=== PATIENT | male | born 1955 | race Caucasian/White ===

== ENCOUNTER 2021-03-25 17:11 | Outpatient (REF) | payer OTHER, SELFPAY ==
[2021-03-25 18:37] LABS: Influenza A PCR NEGATIVE (Negative); Influenza B PCR NEGATIVE (Negative); Resp Syncy Virus RNA Qual PCR NEGATIVE (Negative); SARS COV2 PCR INHOUSE NEGATIVE (Negative)
== END 2021-03-25 17:12 | disposition home or self-care (01) ==
LOC: HO.LNP 17:11
PROVIDERS: Visit Provider Physician Assistant Medical
DX: J06.9 Acute upper respiratory infection, unspecified (principal); J02.9 Acute pharyngitis, unspecified; Z20.822 Contact with and (suspected) exposure to COVID-19
CPT/HCPCS: 0241U

== ENCOUNTER 2022-03-26 08:29 | Emergency (ER) | payer OTHER, SELFPAY ==
[2022-03-26 08:41] VITALS: BP 122/73; PULSE 81; RESP 20; TEMP 36.1; O2SAT 97
[2022-03-26 08:58] VITALS: BP 122/73; PULSE 81; RESP 20; TEMP 36.6; O2SAT 97; BMI 30.4
[2022-03-26 09:33] LABS: Influenza A PCR NEGATIVE (Negative); Influenza B PCR NEGATIVE (Negative); Resp Syncy Virus RNA Qual PCR NEGATIVE (Negative); SARS COV2 PCR INHOUSE POSITIVE (Negative)
--- NOTE | 2022-03-26 09:51 | ED_ITS ---
HPI - URI/Sore Throat General Chief Complaint: Upper Respiratory Symptoms Stated Complaint: sore throat, chest congestion Time Seen by Provider: 03/26/22 08:44 Source: patient Mode of arrival: ambulatory Limitations: no limitations History of Present Illness HPI Narrative: 66-year-old male who presents emergency department for evaluation upper respiratory infection x2 days. Patient states that 3 days prior he was working in a mold the basement cleaning it out. He states that 2 days prior he developed an upper respiratory infection with symptoms to include chills, rhinorrhea, sore throat, nonproductive cough. He states that he is having chest pain with coughing. He points to the center of his chest and describes his pain is a dull pain which is 5/10 at its worst. Patient states that he is a former smoker and quit smoking 15 years prior but smoked greater than 30 years. States that because of this he does feel short of breath on chronically and does have dyspnea on exertion chronically. Patient is complaining of fatigue and body aches. He denied diarrhea. Patient states that he has received 2 Moderna vaccinations and a booster vaccination. Patient states that his grandson was ill with influenza A. MD elicited complaint: cough and nasal congestion Onset (ago): day(s) (2) Consistency: intermittent Severity: moderate Description of mucous: other (Non per) Able to tolerate fluids by mouth: Yes Exacerbating factors: nothing Relieving factors: nothing Context: sick contacts (Grandson has the flu) Related Data Home Medications Medication Instructions Recorded Confirmed chlorthalidone 25 mg tablet 25 mg PO DAILY PRN swelling 03/25/21 finasteride 5 mg tablet 5 mg PO DAILY 03/25/21 lisinopril 10 mg tablet 10 mg PO DAILY 03/25/21 metformin 1,000 mg tablet 1,000 mg PO BID 03/25/21 pravastatin 80 mg tablet 80 mg PO DAILY 03/25/21 Previous Rx's Medication Instructions Recorded azithromycin 250 mg tablet See Rx Instructions PO .COMPLEX #6 03/25/21 tabs prednisone 20 mg tablet 20 mg PO DAILY 3 days #3 tabs 03/25/21 nirmatrelvir 300 mg (150 mg See Rx Instructions PO .COMPLEX 5 03/26/22 x2)-ritonavir 100 mg tablet,dose days #30 ea pack(EUA) (Paxlovid) Allergies Allergy/AdvReac Type Severity Reaction Status Date / Time No Known Allergies Allergy Verified 03/25/21 15:32 Review of Systems Review of Systems: Yes all other systems are reviewed and are negative [facility] Past Medical History [facility] Narrative: Past medical history: Diabetes mellitus, hypertension, pneumonia, bronchitis. Social history: The patient is a former smoker and quit smoking 15 years prior, he states he smoked for greater than 30 years. He rarely drinks alcohol. He denies drug use. Social History Social History Patient Tobacco Use Status: Former Tobacco user Advance Directives: No Advance Directives Information Provided: No Physical Exam Vital Signs: Vital Signs: Last Vital Signs Temp 97.9 F 03/26/22 08:58 Pulse 81 03/26/22 08:58 Resp 20 03/26/22 08:58 BP 122/73 03/26/22 08:58 Pulse Ox 97 03/26/22 08:58 O2 Del Method 03/26/22 08:58 BMI result Body Mass Index 30.4 Const: General: cooperative and no acute distress Orientation/consciousness: oriented to person and oriented to place Limitations: no limitations HEENT: Head: Yes normal to inspection, Yes normocephalic and Yes atraumatic Ears: external ears normal General nose exam: Normal external nose present Face and sinus: Yes normal facial exam Mouth: Normal oral and palatal mucosa present Throat: Yes posterior oropharynx normal Eyes: General: appearance normal, both eyes and all related structures P upils: Equal, round and reactive pupils present Neck: Neck: Yes normal visual inspection, Yes no lymphadenopathy, Yes trachea midline and Yes supple Chest: Chest palpation & inspection: normal inspection of the chest and normal palpation of entire chest wall Resp: Effort & Inspection: normal respiratory effort and able to speak in complete sentences Auscultation: clear to auscultation bilaterally Cardio: Rate: regular rate Rhythm: regular rhythm Heart sounds: S1 normal heart sound present, S2 normal heart sound present and no murmurs GI: Inspection: Yes normal to inspection Palpation (GI): Soft to palpation, nontender and no guarding Auscultation: normal bowel sounds : General: Yes no CVA tenderness Back/Spine/Pelvis: Back: no CVA tenderness Skin: General skin exam: no rashes or lesions noted Neuro: General: oriented to person and oriented to place Cranial nerves: Yes CN's II-XII intact bilaterally and Yes Equal, round and reactive pupils present Cognition (Neuro): normal cognition Motor exam (neuro): 5/5 motor strength present throughout Extrem: General: Yes normal to inspection Psych: Appearance: grossly normal Speech and movement: Normal speech and movement present Affect: normal affect Attitude: cooperative Thought process: Normal thought process present Thought content: Normal thought content present Course Course Course Narrative: 66-year-old male who presents emergency department for evaluation of upper respiratory illness x2 days with symptoms including chills, rhinorrhea, sore throat, cough, chest pain. Vital signs were normal with a room air O2 saturation of 97%. Patient's physical examination was unremarkable. Patient's COVID-19 test was positive. The patient has received 2 COVID vaccinations and a booster shot. Patient is at increased risk for significant illness secondary to COVID (age, diabetes, hypertension, former smoker) therefore he will be treated with PACs elevated. He is advised to stop the pravastatin. He is given printed and verbal instructions discharged home. MDM - URI/Sore Throat Lab Data Labs: Lab Results 03/26/22 Range/Units 08:43 Influenza Type A (PCR) NEGATIVE (Negative) Influenza Type B (PCR) NEGATIVE (Negative) RSV RNA Qual (PCR) NEGATIVE (Negative) SARS-CoV-2 RNA (RT-PCR) POSITIVE A (Negative) Discharge Plan Discharge Clinical Impression: COVID-19 virus infection Patient Disposition: Home, Self-Care Additional Instructions: Your COVID-19 test was positive Your influenza test was negative. Take Advil( ibuprofen) 200 mg pills, 3 pills every 6 hours as needed for pain or fever. Take Tylenol (acetaminophen) 500 mg pills, 2 pills every 4 to 6 hours as needed for pain or fever. Take Paxlovid as prescribed for 5 days. Stop taking your cholesterol medicine, pravastatin while taking Paxlovid Follow-up with your doctor in 2 days. Please return to the emergency department if your symptoms get worse or if you develop any symptoms that are concerning to you. Prescriptions: New Paxlovid (EUA) 300 mg (150 mg x 2)-100 mg tablets,dose pack See Rx Instructions .ROUTE .COMPLEX 5 Days Qty: 30 0RF Rx Instructions: take TWO 150 mg tablets of nirmatrelvir with ONE 100 mg tablet of ritonavir twice daily for 5 days No Action finasteride 5 mg tablet 5 mg PO DAILY lisinopril 10 mg tablet 10 mg PO DAILY pravastatin 80 mg tablet 80 mg PO DAILY chlorthalidone 25 mg tablet 25 mg PO DAILY PRN (Reason: swelling) metformin 1,000 mg tablet 1,000 mg PO BID azithromycin 250 mg tablet See Rx Instructions PO .COMPLEX Qty: 6 0RF Rx Instructions: take 500 mg today (day 1), then 250 mg for 4 days (days 2-5) PO prednisone 20 mg tablet 20 mg PO DAILY 3 Days Qty: 3 0RF
== END 2022-03-26 10:14 | disposition home or self-care (01) ==
PROVIDERS: Emergency Provider Emergency Medicine Emergency Medical Services; PCP Internal Medicine
DX: U07.1 COVID-19 (principal); E11.9 Type 2 diabetes mellitus without complications; I10 Essential (primary) hypertension; Z79.84 Long term (current) use of oral hypoglycemic drugs; Z79.02 Long term (current) use of antithrombotics/antiplatelets
CPT/HCPCS: 0241U; 99283

== ENCOUNTER 2022-03-30 05:32 | Emergency (ER) | payer OTHER, SELFPAY ==
--- NOTE | ~2022-03-30 | XR_ITS ---
EXAMINATION: XR CHEST CLINICAL INFORMATION: Cough. COMPARISON: None TECHNIQUE: Frontal view of the chest was obtained. FINDINGS: The lungs are hypoexpanded but clear of acute process. The heart size and pulmonary vascularity is normal. There is moderate spondylosis dorsal spine.. XR/XR chest 1V IMPRESSION: Unremarkable chest examination.
[2022-03-30 05:44] VITALS: BP 116/77; PULSE 103; RESP 20; TEMP 36.1; O2SAT 94; BMI 30.4
--- NOTE | 2022-03-30 07:18 | ED_ITS ---
HPI - URI/Sore Throat General Chief Complaint: Upper Respiratory Symptoms Stated Complaint: covid +; symptoms worsening Time Seen by Provider: 03/30/22 06:53 Source: patient Mode of arrival: ambulatory Limitations: no limitations History of Present Illness HPI Narrative: This is a 66 years old the male COVID positive seen on March 26 in this department and started on Paxil , return today because persistent cough body aches and malaise. Symptoms worse when he lies down. MD elicited complaint: cough, sore throat and nasal congestion Pertinent past history: other (COVID positive) Onset (ago): day(s) (4) Consistency: constant Severity: moderate Description of mucous: clear Able to tolerate fluids by mouth: Yes Exacerbating factors: nothing Relieving factors: nothing Associated symptoms: myalgias, nasal congestion and cough Related Data Home Medications Medication Instructions Recorded Confirmed chlorthalidone 25 mg tablet 25 mg PO DAILY PRN swelling 03/25/21 finasteride 5 mg tablet 5 mg PO DAILY 03/25/21 lisinopril 10 mg tablet 10 mg PO DAILY 03/25/21 metformin 1,000 mg tablet 1,000 mg PO BID 03/25/21 pravastatin 80 mg tablet 80 mg PO DAILY 03/25/21 Previous Rx's Medication Instructions Recorded azithromycin 250 mg tablet See Rx Instructions PO .COMPLEX #6 03/25/21 tabs prednisone 20 mg tablet 20 mg PO DAILY 3 days #3 tabs 03/25/21 nirmatrelvir 300 mg (150 mg See Rx Instructions PO .COMPLEX 5 03/26/22 x2)-ritonavir 100 mg tablet,dose days #30 ea pack(EUA) (Paxlovid) Allergies Allergy/AdvReac Type Severity Reaction Status Date / Time No Known Allergies Allergy Verified 03/30/22 05:48 Review of Systems Review of Systems: Yes all other systems are reviewed and are negative Constitutional: Constitutional: Reports no additional constitutional complaints Eyes: Eyes: Reports no additional eye complaints ENT: Reports system reviewed and no additional complaints, except as documented Cardiovascular: Cardiovascular: Reports no additional cardiovascular complaints Respiratory: Respiratory: Reports no additional respiratory complaints [facility] Social History Social History Patient Tobacco Use Status: Former Tobacco user Advance Directives: Yes Advance Directives Information Provided: Yes Advance Directives on File: No Physical Exam Vital Signs: Vital Signs: Last Vital Signs Temp 98.0 F 03/30/22 07:46 Pulse 86 03/30/22 07:46 Resp 20 03/30/22 07:46 BP 108/71 03/30/22 07:46 Pulse Ox 94 03/30/22 07:46 O2 Del Method 03/30/22 07:46 BMI result Body Mass Index 30.4 Const: General: cooperative Nutritional Appearance: average body habitus and well nourished Orientation/consciousness: patient oriented x3 Limitations: no limitations HEENT: Head: Yes normal to inspection Face and sinus: Yes normal facial exam Mouth: Normal oral and palatal mucosa present Neck: Neck: Yes normal visual inspection, Yes full ROM and Yes no lymphadenopathy Thyroid: Thyroid normal Chest: Chest palpation & inspection: normal inspection of the chest Resp: Effort & Inspection: normal respiratory effort and able to speak in complete sentences Auscultation: rhonchi Cardio: Jugular venous distension: no JVD Rate: regular rate Rhythm: re gular rhythm GI: Inspection: Yes normal to inspection Palpation (GI): Soft to palpation, not firm, nontender and no guarding Skin: Other: no rashes Neuro: General: patient oriented x3 Course Reevaluation(s) Reevaluation #1: feels better CXR negative will d/c already on Paxlovid Time: 08:29 Medications Administered Discontinued Medications Generic Name Dose Route Start Last Admin Trade Name Freq PRN Reason Stop Dose Admin Acetaminophen 975 mg 03/30/22 07:17 03/30/22 07:45 Acetaminophen 325 Mg Tablet PO 03/30/22 07:18 975 mg ONCE ONE Administration MDM - URI/Sore Throat Imaging Data Chest x-ray: Radiologist's impression: EXAMINATION: XR CHEST CLINICAL INFORMATION: Cough. COMPARISON: None TECHNIQUE: Frontal view of the chest was obtained. FINDINGS: The lungs are hypoexpanded but clear of acute process. The heart size and pulmonary vascularity is normal. There is moderate spondylosis dorsal spine.. XR/XR chest 1V IMPRESSION: Unremarkable chest examination. ? Dictated By: Adrian Blake MD Signed By: <Electronically signed by Adrian Blake MD in OV> 03/30/22 0809 Discharge Plan Discharge Clinical Impression: COVID-19 virus infection Patient Disposition: Home, Self-Care Instructions: COVID-19 (Coronavirus Disease 2019) (ED) Additional Instructions: Follow-up with your primary care physician take a tunnel and ibuprofen for pain return if you worse Prescriptions: No Action Paxlovid (EUA) 300 mg (150 mg x 2)-100 mg tablets,dose pack See Rx Instructions .ROUTE .COMPLEX 5 Days Qty: 30 0RF Rx Instructions: take TWO 150 mg tablets of nirmatrelvir with ONE 100 mg tablet of ritonavir twice daily for 5 days finasteride 5 mg tablet 5 mg PO DAILY lisinopril 10 mg tablet 10 mg PO DAILY pravastatin 80 mg tablet 80 mg PO DAILY chlorthalidone 25 mg tablet 25 mg PO DAILY PRN (Reason: swelling) metformin 1,000 mg tablet 1,000 mg PO BID azithromycin 250 mg tablet See Rx Instructions PO .COMPLEX Qty: 6 0RF Rx Instructions: take 500 mg today (day 1), then 250 mg for 4 days (days 2-5) PO prednisone 20 mg tablet 20 mg PO DAILY 3 Days Qty: 3 0RF Referrals: Suresh Lincoln MD [Primary Care Provider] - 2 days Interventions: ED Discharge Assessment Last Done: 03/30/22 09:12 Discharge Date/Time: 03/30/22 09:14
[2022-03-30] MEDS: Acetaminophen 325 MG TABLET 975 MG PO (07:45)
[2022-03-30 07:46] VITALS: BP 108/71; PULSE 86; RESP 20; TEMP 36.7; O2SAT 94
== END 2022-03-30 09:14 | disposition home or self-care (01) ==
PROVIDERS: Emergency Provider Emergency Medicine; PCP Internal Medicine
DX: U07.1 COVID-19 (principal); M79.10 Myalgia, unspecified site; R05.9 Cough, unspecified; Z79.899 Other long term (current) drug therapy
CPT/HCPCS: 71045; 99283; 99284

== ENCOUNTER 2025-01-29 06:56 | Observation (INO) | payer BC, MEDICARE, SELFPAY ==
--- OUTSIDE RECORDS SUMMARY | 2023-11-21 10:45 | XMS_ITS ---
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 Name Role Phone Latonia GILLIS, Suresh Primary Care Provider Flori Madison [phone] Encounters Encounter Location Date Provider Diagnosis [address] [id number] 11/21/2023 Flori Bah Plan Of Treatment Next Appt Details Provider Name:Flori A Olvin , 05/09/2025 02:30:00 PM, [address] [place] [address], [id number], Progress Notes * Haroldo TORRES KeriDOB:1955 (69 yo M)Acc No.[id number]:11/21/2023 Progress Note Patient: Haroldo SPEARS Provider: Mae Bah DPM :1955 A ge:68 Y S ex:Male Date:11/21/2023 Address:[address] [place] [address] Pcp:Suresh Lincoln MD Subjective: * Chief Complaints: * * Medical History: Objective: * Vitals: Assessment: Plan: * Treatment: * Images: * The named appointment provid er may or may not be the originator of this progress note, and it is not deemed complete until electronically signed by the appointment provider. Sign off status: Pending * Provider: Mae Bah DPM Date: 0 11/21/2023 Generated for Bianka stanley/[place]osse/[place] on: 0 01/29/2025 07:36 AM EDT
--- NOTE | ~2025-01-29 | CT_ITS ---
EXAMINATION: CT ABDOMEN AND PELVIS WITHOUT CONTRAST CLINICAL INFORMATION: Hematuria. COMPARISON: None available. TECHNIQUE: Multidetector volumetric imaging was performed from the superior aspect of the liver through the pubic symphysis. Sagittal and coronal reformatted images were obtained on the technologist's workstation. This CT examination was performed using dose optimization techniques as appropriate, variously including the following: *Automated exposure control *Adjustment of mA and/or kV according to patient size (this includes techniques or standardized protocols for targeted exams where dose is matched to indication/reason for exam; i.e. extremities or head) *Use of iterative reconstruction technique. DLP: 857 mGy centimeter. FINDINGS: Inadequate evaluation of the intra-abdominal organs and vascular structures due to lack of IV contrast. LUNG BASES: Subsegmental atelectasis scarring. LIVER, GALLBLADDER, AND BILIARY TREE: Liver measures 19 cm. Subcentimeter hypodensities no fully evaluated.. No pericholecystic fluid collection or gallbladder wall thickening. No distention. No intrahepatic or extrahepatic biliary ductal dilatation. PANCREAS: No peripancreatic fluid collections. No main pancreatic ductal dilatation. SPLEEN: 11 cm. ADRENAL GLANDS: No nodular lesions. KIDNEYS AND URETERS: Right kidney: 1 mm calculus in the midportion of the pelvicalyceal system. No hydronephrosis. Nonspecific perinephric edema pattern. No dilatation of the right ureter. Left kidney: No hydronephrosis. No gross nephrolithiasis. 2 cm exophytic fluid density in the upper pole. Nonspecific perinephric edema pattern. Probable 1.5 cm fluid density in the parapelvic midportion and similar findings in the lower pole. No dilatation of the left ureter. BLADDER: Fluid-filled nearly collapsed. No calcifications in the bladder lumen. The ureterovesical junction demonstrates no calcifications. GASTROINTESTINAL TRACT: Appendix is normal, retrocecal. Abundant stool throughout a nondilated large intestine. No intestinal obstruction pattern. Few scattered diverticula in the sigmoid colon. No gross intestinal wall thickening. No ascites. No pneumoperitoneum. No fluid collections in the peritoneal cavity. ABDOMINAL WALL: Fat-containing umbilical hernia, small. LYMPH NODES: No specific prominent, suly iliac and mesentery. VASCULAR: Plaques throughout the abdominal aorta wall and iliac arteries without gross aneurysm. Calcified plaques in the mesenteric arteries, the origin of the main renal arteries, splenic artery and femoral arteries. PELVIC VISCERA: Punctate calcifications in a nonenlarged prostate gland and both sides of the penile region. OSSEOUS STRUCTURES: Osteopenia versus osteoporosis. Levoconvex curvature which could be positional. Sclerosis and the sacroiliac joints. Multilevel thoracolumbar spondylosis pronounced at L2-3 resulting in grade 1 retrolisthesis and likely central spinal canal and bilateral neuroforamina stenosis from L2-3 to L4-5 CT/CT abdomen pelvis wo IV con IMPRESSION: Nonobstructing 1 mm nephrolithiasis, right kidney. Cystic lesions, left kidney. Cystic lesions, hepatic. Hepatomegaly, mild. Atherosclerosis disease. Small fat-containing umbilical hernia. Multilevel spondylosis resulting in central spinal canal stenosis from L2-3 to L4-5. Osteopenia versus osteoporosis. Fleischner guidelines were followed. Electronically signed by: Wilfredo Cao MD 01/29/2025 08:46 AM EDT
[2025-01-29 07:05] VITALS: BP 154/87; PULSE 86; RESP 18; TEMP 36.3; O2SAT 95; BMI 73.1
[2025-01-29 07:25] LABS: MANUAL DIFF FLAG NO
[2025-01-29 07:26] LABS: Hematocrit 41.7 % (42.0-52.0); Hemoglobin 14.3 g/dl (14.0-18.0); Imm Gran Abs Auto 0.04 X10*3/uL (0.00-0.03); Imm Gran Pct Auto 0.6 % (0.0-0.4); Lymphocytes Absolute Auto 2.4 X10*3/uL (1.2-4.9); Mean Corpuscular HGB Conc 34.3 g/dl (31.0-36.0); Mean Corpuscular Hemoglobin 30.6 pg (27.0-33.0); Mean Corpuscular Volume 89.3 fL (80.0-98.0); NRBC Abs Auto 0.000 X10*3/uL (0.0-0.012); NRBC Pct Auto 0.0 /100WBC (0.0-0.2); Platelet Count 203 X10*3/uL (160-400); Red Blood Count 4.67 X10*6/uL (4.60-5.80); White Blood Count 7.2 X10*3/uL (4.8-10.8)
[2025-01-29 07:27] VITALS: BP 145/75; PULSE 80; RESP 16; TEMP 36.5; O2SAT 93
[2025-01-29 07:27] LABS: Appearance Urine Cloudy; Glucose Urine UA Negative (Negative); PH 5.0 (5.0-9.0); Specific Gravity - Urine 1.020 (1.005-1.025); UMIC TRIGGER UACC YES
--- NOTE | 2025-01-29 07:30 | PC.NURSE ---
A&O x 3 Patient presents to ED c/o hematuria which started on Tuesday Denies pain, sob, dizziness, lightheadedness, trauma Patient states hematuria comes and goes Hx DVT Patient on eliquis, notified PCP of bleeding no meds changes VSS and up to date Patient provided urine sample Provider in to see patient Plan of care on going
[2025-01-29 07:32] LABS: UACC Culture Trigger YES
--- OUTSIDE RECORDS SUMMARY | 2025-01-29 07:36 | XMS_ITS | Data Portability ---
Author Organization [facility] Yeyo Antonio [facility], [facility] Address [address] [place] [address] Assessment Encounter Date Assessment Date Assessment LastModified by Organization Details LastModified Time 07/14/2023 07/14/2023 IMPRESSION: 6 weeks postop, doing well PLAN: I reviewed his intraoperative fluoroscopic images with him demonstrating removal of the dorsal osteophytes. He is doing very well. He may continue with supportive shoe wear and activity as tolerated. He will continue working on MTP range of motion. He wishes to follow up as needed if any problems arise in the future. All questions were answered. Not available 07/14/2023 12:03:35 08/25/2023 08/25/2023 IMPRESSION: Muna tapia 3 months postop, doing well; right lower extremity swelling related to surgery and likely venous insufficiency PLAN: I reassured him that his swelling should improve with time. I believe there is a component of venous insufficiency. I have recommended he begin using his knee-high compression stocking again. He will follow up in 2-3 months for reevaluation. If swelling persists, I would recommend referral to see Dr. Washington Pierre MD for noninvasive vascular studies to evaluate his venous return. All questions were answered. He understands and agrees with this plan. Not available 08/25/2023 08:24:02 10/13/2023 10/13/2023 History: Patient is a 68-year-old male returns to me for initial evaluation of bilateral knee pain right greater than left. He has had knee pain for greater than 20 years. Cortisone in the past provided less than a week of relief. Takes ibuprofen for discomfort. Pain level VIII/10. Reports limitations in activities including difficulty with stairs and getting out of a chair. Unable to kneel or squat. Reports a limp. PMH/PSH/MEDS/ALL/F MH/SOC HX/ROS are reviewed in detail per my medical intake sheet. Of note: Diabetes with last A1c 7.3, high cholesterol, hypertension, BPH General Exam: Vital signs are as noted below Mental status: Alert and lucid. Normal insight, affect and grooming. RHIT: Gross motor coordination is intact. No spasticity or clonus noted. Extremities: Calves are soft nontender, skin intact Orthopedic Examination: Patient has a negative straight leg rise test bilaterally. Right Hip:Full range of motion without pain. No trochanteric tenderness. Left Hip:Full range of motion without pain. No trochanteric tenderness. Right Knee: Varus alignment. Range of motion 5-120. Severe tenderness and crepitus medially. No instability or significant effusion. Left Knee: Varus alignment. Range of motion 5-120. Severe tenderness and crepitus medially. No instability or significant effusion. Antalgic gait pattern favoring the right side. Full strength and sensation distally X-rays: Radiographs reviewed from her previous visit including a standing AP, Martínez view, nonweightbearing lateral views, and merchant view. These radiographs demonstrate end-stage osteoarthrits of the bilateral knees. There is [id number] articulation, subchondral sclerosis, and osteophyte formation. Assessment: End-stage osteoarthritis of the bilateral knees with right more symptomatic than left which has failed greater than 3 months of nonoperative treatment including medication, activity modification, and injections. The patient is in too much discomfort to participate in any meaningful physical therapy. PLAN: The patient was thoroughly counseled today regarding their knee condition, its natural history and the options, both operative and non-operative. The nature of knee replacement surgery, the potential risks, benefits, and complications, the magnitude of the surgery, the intensity of postoperative recovery as well as its elective nature were explained at length today. Although it is impossible to list all of the possible complications of any operation or procedure, I explained that some of the major complications that may arise include the following: Blood loss requiring transfusion, infection (early or late), blood clots, dislocation, pain (persistent or new), scars numbness or tenderness, unequal leg lengths, weakness, stiffness, loss of motion, clicking of implant, calcification, fracture of bone, instability of leg, nerve damage (paralysis or numbness), blood vessel damage, implant loosening, implant breakage, wearing of the implant, need for future surgery, allergic reaction, metal toxicity, medical complications including confusion, heart attack, stroke, or ). Issues regarding lifelong infection and activity precautions were reviewed. The longevity of the implants was discussed. The patient understands the potential need for revision surgery. We discussed performing the surgery in either an inpatient or outpatient setting as well as the pros and cons of both. The patient has elected to proceed in a inpatient setting. The patient understands that they are at potential increased risk of urinary retention due to significant history of BPH. The patient will require clearance from a medical doctor prior to surgery. The patient wishes to schedule an elective total knee replacement on both sides beginning with the right. I will stagger the surgeries approximately 8 weeks apart. Next planned follow-up is at the history and physical. The patient knows I will be happy to meet with them at any time in order to review any additional questions or concerns that they might have. [email or web address] Not available 10/14/2023 17:43:52 10/20/2023 10/20/2023 HPI: Leeann is a 68-year-old diabetic gentleman who is 4.5 months status post right hallux MTP dorsal cheilectomy for treatment of hallux rigidus. He has done very well from that standpoint with near complete relief of his great toe pain. His pain level is 2/10. His residual swelling has resolved. He is in need of bilateral total knee replacements. He denies any fevers, chills, malaise or paresthesias. He denies any known history of peripheral vascular disease or venous insufficiency. He otherwise has no concerns. He is happy with his surgical result. He reports good glycemic control with blood glucose levels ranging from 100-120 and his last hemoglobin A1c was 7.3%. Past family, medical, social history and review of systems has been reviewed, updated and signed by me and is located in the patient s chart. PHYSICAL EXAM: General: healthy appearing, in no acute distress Psych: alert and oriented x3, normal mood Skin: intact without ulceration or lesion, normal turgor Lungs: respirations unlabored Cardiac: heart rate regular, normal peripheral pulses Musculoskeletal: With sneaker removed, he has baseline mild hallux valgus alignment. He has about 30-40 of first MTP dorsiflexion without pain or crepitus and tenderness of plantarflexion. There is minimal residual swelling about the right foot and ankle. There is no erythema or warmth. His great toe is nontender. He has palpable pedal pulses. He is distally neurovascularly intact. IMPRESSION: 4.5 months postop, doing well PLAN: He is doing very well and has minimal pain. He is happy with his surgical result. He wishes to follow-up as needed if any problems arise in the future. All questions were answered. He understands and agrees with this plan. Not available 10/20/2023 13:58:29 Plan of Treatment Reminders Order Date Submit Date Provider Last Modified By Organization Details Last Modified Time Details Appointments None recorded . Lab None recorded . Referral physical therapis t referral - PRE HAB RTKR 11/11/23 AND LTKR 01/10/24 Strength ening Lower Extremit y Upper extremit y to improve strength for transfer s with arthriti c lower extremit y No ROM Conditio myla- stationa ry bike, etc. If pt over age 55 or has any cardiopu lmonary history, call PCP first to obtain medical clearanc e. Gait training Cane Walker Assistiv e devices for ADL's- sock puller, long shoe horn, etc. 2023 024 [email or web address] [facility] ([facility]), [address], [place], [address], 4 16:10:40 physical therapis t referral - S/P RTKR 11/11/23 BEGIN POST OP PT ON 11/21/23 ROM, Strength ening, Conditio myla, Gait Training Etc. Please bring this script and attached protocol with you to your physical therapy appointm ent 2023 024 [email or web address] [facility] ([facility]), [address], [place], [address], 4 16:10:40 physical therapis t referral - S/P LTKR 01/10/24 BEGIN POST OP PT ON 01/20/24 ROM, Strength ening, Conditio myla, Gait Training Etc. . Please bring this script and attached protocol with you to your physical therapy appointm ent 2023 024 [email or web address] [facility] ([place]), [address], [place], [address], 4 16:10:40 Procedures None recorded . Surgeries None recorded . Imaging XR, foot, 3 or more view 2023 024 [email or web address] Not available 09:08:25 Medication Orders None recorded . Patient TargetsNo targets recorded. Patient InstructionsNo instructions recorded. Reason for Referral Physical Therapist Referral for Osteoarthritis of right knee joint PRE HAB RTKR 11/11/23 AND LTKR 01/10/24Strengthening Lower Extremity Upper extremity to improve strength for transfers with arthritic lower extremity No ROM Conditioning- stationary bike, etc. If pt over age 55 or has any cardiopulmonary history, call PCP first to obtain medical clearance.Gait training Cane WalkerAssistive devices for ADL's- sock puller, long shoe horn, etc. Referring Physician: Suresh Parra, Orthopedic Surgery, [id number] Encounter Date: 10/13/2023 Physical Therapist Referral for Osteoarthritis of right knee joint S/P RTKR 11/11/23 BEGIN POST OP PT ON 11/21/23ROM, Strengthening, Conditioning, Gait Training Etc.Please bring this script and attached protocol with you to your physical therapy appointment Referring Physician: Suresh Parra, Orthopedic Surgery, [id number] Encounter Date: 10/13/2023 Physical Therapist Referral for Osteoarthritis of left knee joint S/P LTKR 01/10/24 BEGIN POST OP PT ON 01/20/24ROM, Strengthening, Conditioning, Gait Training Etc.. Please bring this script and attached protocol with you to your physical therapy appointment Referring Physician: Suresh Parra, Orthopedic Surgery, [id number] Encounter Date: 10/13/2023 Procedures Surgical History Date Name Laterality Status Provider Name and Address Organization Details Recorded Time 4 Ankle/Foot Surgery completed SEBAS JOSUE [place] - [facility] 10/13/2023 13:14:34 Knee Surgery completed SEBAS JOSUE [place] - [facility] 10/13/2023 13:14:34 Imaging Results None recorded. Procedure Notes None recorded. Medical Equipment None Reported. Allergies No known drug allergies Medications Name Sig Start Date Stop Date Status Note LastModified by Organization Details LastModified Time amoxicillin 500 mg capsule TAKE 1 CAPSULE BY MOUTH THREE TIMES DAILY FOR 7 DAYS 10/10 completed Not Available Not Available Not Available acetaminoph en 325 mg tablet TAKE 2 TABLETS BY MOUTH EVERY 8 HOURS NEEDED FOR PAIN 10/10 completed Not Available Not Available Not Available prednisone 10 mg tablet 10/10 completed Not Available Not Available Not Available doxycycline hyclate 100 mg capsule TAKE 1 CAPSULE BY MOUTH TWICE DAILY WITH FOOD AND GLASS OF WATER FOR 5 DAYS 10/10 completed Not Available Not Available Not Available trazodone 50 mg tablet TAKE 1 TO 2 TABLETS BY MOUTH 1 HOUR PRIOR TO BEDTIME active Not Available Not Available No t Available aspirin 325 mg tablet TAKE 1 TABLET BY MOUTH DAILY. START THE DAY AFTER SURGERY 10/10 completed Not Available Not Available Not Available lisinopril 20 mg tablet active Not Available Not Available Not Available prednisone 20 mg tablet TAKE 1 TABLET BY MOUTH TWICE DAILY FOR 5 DAYS 10/10 completed Not Available Not Available Not Available chlorthalid one 25 mg tablet TAKE 1 TABLET BY MOUTH DAILY 10/10 completed Not Available Not Available Not Available sulfamethox azole 800 mg-trimetho prim 160 mg tablet TAKE 1 TABLET BY MOUTH TWICE DAILY FOR 10 DAYS 10/10 completed Not Available Not Available Not Available pravastatin 80 mg tablet TAKE 1 TABLET BY MOUTH DAILY active Not Available Not Available No t Available tamsulosin 0.4 mg capsule TAKE 1 CAPSULE BY MOUTH EVERY DAY active Not Available Not Available No t Available metformin 1,000 mg tablet TAKE 1 TABLET BY MOUTH TWICE DAILY active Not Available Not Available No t Available lisinopril 10 mg tablet TAKE 1 TABLET BY MOUTH EVERY DAY 10/10 completed Not Available Not Available Not Available mupirocin 2 % topical ointment APPLY TO SURGICAL SITE TWICE DAILY FOR 7-14 DAYS OR UNTIL FULLY HEALED 10/10 completed Not Available Not Available Not Available SSD 1 % topical cream APPLY TOPICALLY TO THE AFFECTED AREA EVERY DAY 10/10 completed Not Available Not Available Not Available ipratropium bromide 21 mcg (0.03 %) nasal spray USE 1 SPRAY IN EACH NOSTRIL TWICE DAILY 10/10 completed Not Available Not Available Not Available finasteride 5 mg tablet TAKE 1 TABLET BY MOUTH DAILY active Not Available Not Available No t Available loratadine 10 mg tablet TAKE 1 TABLET BY MOUTH DAILY 10/10 completed Not Available Not Available Not Available oxycodone 5 mg tablet TAKE 1 TABLET BY MOUTH EVERY 4 TO 6 HOURS NEEDED FOR PAIN 10/10 completed Not Available Not Available Not Available cyclobenzap rine 5 mg tablet TAKE 1 TABLET BY MOUTH EVERY 8 HOURS NEEDED FOR MUSCLE SPASM 10/10 completed Not Available Not Available Not Available oxycodone HCl-oxycodo ne-ASA 1Q 4-[address] WHILE ON THIS MEDICATIO NTo begin after sugery 2023 active Statu s: 'Curr ent'; Not Available Not Available Not Available Vitals Date Recorded Body height Body mass index (BMI) Body weight Provider Name and Address Organization Details Last Updated DateTime 07/14/2023 193.04 cm 29.8 kg/m2 685922.13 g JENNIFER Card [facility] 07/14/2023 11:48:23 Date Recorded Body height Body mass index (BMI) Body weight Provider Name and Address Organization Details Last Updated DateTime 08/01/2023 193.04 cm 29.8 kg/m2 205236.13 g BITA EARL [facility] 08/01/2023 09:18:47 Date Recorded Body height Body mass index (BMI) Body weight Provider Name and Address Organization Details Last Updated DateTime 08/25/2023 193.04 cm 29.8 kg/m2 906173.13 g JENNIFER Card [facility] 08/25/2023 08:11:31 Date Recorded Body height Body mass index (BMI) Body weight Provider Name and Address Organization Details Last Updated DateTime 10/13/2023 192.41 cm 31.9 kg/m2 690121.02 g SEBAS JOSUE [facility] 10/13/2023 13:17:48 Date Recorded Body height Body mass index (BMI) Body weight Provider Name and Address Organization Details Last Updated DateTime 10/20/2023 192.41 cm 31.9 kg/m2 455003.02 g JENNIFER Card [place] - [facility] 10/20/2023 13:43:52 Social History None recorded. Functional Status None recorded. Mental Status None recorded. Family History Nothing Reported. Medical History No medical history recorded. Past Encounters Encounter ID Performer Location Encounter Start Date Encounter Closed Date Diagnosis/Indication Diagnosis SNOMED-CT Code Diagnosis ICD10 Code Diagnosis IMO Codes Diagnosis Note [id number] MD [facility] [address] [place] [address] 07/14/2023 11:38:47 07/14/2023 16:30:33 Pain in right foot 1909166106 21413 M79.671 Postoperative visit 1836 84647 Z48.89 [id number] [facility] [address] [place] [address] 08/01/2023 09:08:43 08/18/2023 10:22:21 Bilateral osteoarthritis of knees 3103339966 75186 M17.0 [id number] MD [facility] [address] [place] [address] 08/25/2023 08:08:14 09/13/2023 11:31:55 Postoperative visit 441627868 Z48.89 [id number] [facility] [address] [place] [address] 10/13/2023 13:01:10 11/14/2023 16:10:40 Osteoarthritis of right knee joint 3539089980 34095 M17.11 Osteoarthr itis of left knee joint 8339277039 27870 M17.12 Bilateral osteoarthritis of knees 2655376275 32196 M17.0 [id number] MD [facility] [address] [place] [address] 10/20/2023 13:37:54 11/18/2023 10:51:08 Follow-up orthopedic assessment [id number] Z47.89 Health Concerns Section Related Observation LastModified by Organization Detai ls LastModified Time None Recorded Concern Status LastModified by Organization Details LastModified Time None Recorded Advance Directives Directive None Recorded Payers Insurance Date Sequence Insurance Name Policy Number Policy Barger Covered Member ID Barger Member ID Guarantor Name 11/18/2023 1 [facility] [id number] Haroldo Aquino [id number] Haroldo Aquino Notes Date Note Type Note Provider Name and Address Organization Details Recorded Time 4 text/html ROS as noted in the HPI Leeann is a 68-year-old gentleman who is now 6 weeks status post right hallux MTP dorsal cheilectomy for hallux rigidus. He is doing very well and has no pain. He is happy with his surgical result. He returned to work on 07/04/2023. He is tolerating regular sneakers. He describes relief of his preoperative pain. He denies any fevers, chills or paresthesias. Past family, medical, social history and review of systems has been reviewed, updated and signed by me and is located in the patient s chart. Teto Elizabeth MD [address] [place] [address] [address], [place], [address], [facility] 07/14/2023 12:49:20 4 text/html I am seeing the patient today under the supervision of Dr. Malhotra who was available but who did not see the patient.History: This gentleman presents today for new problem of bilateral knee pain. He is known to have end-stage bilateral knee arthritis. Has had this for a number of years. Right side is getting more trouble than his left. He has difficulty with walking as well as with stairs. He does have diabetes his most recent hemoglobin A1c was within normal range. Has had cortisone injections as well as viscosupplementation in the past with diminishing benefit. He is at a point now where he wishes to pursue more definitive treatment in regards to his knees. PMH/PSH/MEDS/ALL/FMH/SOC HX/ROS are reviewed in detail, updated and located in the patient's chart. General Exam: Vital signs are as noted belowMental status: Alert and lucid. Normal insight, affect and grooming.RHIT: Gross motor coordination is intact. No spasticity or clonus noted.Extremities: [Calves are soft non tender, skin intact. ]Orthopedic Examination:Patient has a negative straight leg raise bilaterally.Right Hip: [ ] Hip exam shows no tenderness to palpation. There is full range of motion throughout all planes without irritability. There is full muscle strength. There is negative straight leg raise. Negative for signs of impingement.Left Hip:[ ] Hip exam shows no tenderness to palpation. There is full range of motion throughout all planes without irritability. There is full muscle strength. There is negative straight leg raise. Negative for signs of impingement.Right Knee: Varus alignment. Tenderness medially. Mild effusion. No erythema or warmth. Range of motion -5-115Left Knee: First alignment. Tenderness medially. Mild effusion. No erythema or warmth. Range of motion -5-115. Peripheral, vascular, lymphatic examination, skin, neurological, coordination, reflexes, sensation are within normal limits. X-rays ordered, obtained and reivewed at [facility], 4 views of the Knees bilaterally including a standing AP, Martínez view, nonweightbearing lateral views, and merchant view. These radiographs demonstrate Endstage medial compartment arthritis with varus alignment. Osteophytic spurring medially and laterally as well as patellofemoral joint. Assessment:End-stage bilateral knee arthritis PLAN: The patient was thoroughly counseled today regarding knee condition. Its natural history and the options, both operative and nonoperative. The nature of knee replacement surgery, the potential risks, benefits, and complications, the magnitude of the surgery, the intensity of postoperative recovery as well as its elective nature was explained at length today. Issues regarding lifelong infection and activity precautions were reviewed. The longevity of the implants was discussed. The patient understands the potential need for revision surgery within the next 15 years. The patient understands the potential complexity of a revision situation as well.In regards to today's visit and in discussion of conservative treatment options. We have gone over Tylenol, use of anti-inflammatories, role of physical therapy, as well as intra-articular cortisone injections. Patient wished follow-up with Dr. Parra. This will be arranged. All questions answered. [facility] [facility] speech recognition manager android software was used to create portions of this document. An attempt at proofreading has been made to minimize errors. Please call for corrections. Loc Brady PA-C [address] [facility] [address], [place], [address], [facility] 08/03/2023 08:06:56 4 text/html ROS as noted in the HPI Leeann is a 68-year-old diabetic gentleman who is almost 3 months status post right hallux MTP dorsal cheilectomy for treatment of hallux rigidus. He has done very well from that standpoint with complete relief of his great toe pain. His only concern currently is residual swelling of the right foot and ankle. He has tried wearing compression stocking early in the postop recovery but had difficulty tolerating this. He denies any fevers, chills, malaise or paresthesias. He denies any known history of peripheral vascular disease or venous insufficiency. He otherwise has no concerns. He is happy with his surgical result. He reports good glycemic control with blood glucose levels ranging from 100-120 and his last hemoglobin A1c was 7.3%.Past family, medical, social history and review of systems has been reviewed, updated and signed by me and is located in the patient s chart. Teto Elizabeth MD [address], [place], [address], [facility] 08/25/2023 13:09:10 4 text/html ROS as noted in the HPI Teto Elizabeth MD [address], [place], [address], [facility] 10/20/2023 14:00:46
--- OUTSIDE RECORDS SUMMARY | 2025-01-29 07:36 | XMS_ITS | Patient Health Record ---
[facility] Address [address] [place] [address] Care Team Providers Care Media Planner Name Role Phone Suresh Lincoln MD Primary Care Provider Aurea BahAmye Unavailable [phone] Allergies No Known Allergies Results Component Value Reference Range Notes HEMOGLOBIN A1C (GLYCOHEMOGLO BIN) Reviewed date:05/07/2024 02:17:57 PM Interpretation: Performing Lab: Notes/Report: HEMOGLOBIN A1C % (HH) 8.2 Reason For Referral No Information Medications Medication SIG (Take, Route, Frequency, Duration) Notes Start Date End Date Status traZODone HCl Active Vitamin B12 Not-Taki ng Chlorthalidone 25 MG 1 tablet in the morning with food Orally Once a day; Duration: 30 day(s) Not-Taking Turmeric Not-Taking Bactrim DS 800-160 MG 1 tablet Orally Twice a day; Duration: 10 days Not-Taking Advil PRN Active Silvadene 1 % 1 application Externally Once a day; Duration: 30 days Not-Taking Vitamin D Active Clindamycin HCl 300 MG 2 capsules Orally every 8 hrs; Duration: 10 day(s) Not-Taking Multivitamin Active Lantus Not-Taking Lisinopril 10 MG 1 tablet Orally Once a day Active Omeprazole 20 MG 1 capsule Orally Once a day Not-Taking Finasteride 5 MG 1 tablet Orally Once a day Active Cephalexin 500 MG 1 capsule Orally BID; Duration: 10 days 02/16/2021 Not-Taking Pravastatin Sodium 80 MG 1 tablet Orally Once a day Active hydroCHLOROthiazide 25 MG 1 tablet Orall y Once a day Not-Taking metFORMIN HCl 1000 MG 1 tablet with meal s Orally Twice a day Active Gabapentin 300 MG 1 capsule Orally Three times a day Not-Taking Tylenol Active Eliquis Active zzzCompression Stockings 20-30mm Hg . . .; Duration: . Active Immunizations Vaccine Route Administration Date Status Comme nts Influenza Unknown 11/17/2015 Administered Influenza Unknown 03/02/2018 Administered Influenza Unknown 01/31/2020 Administered Influenza Unknown 02/01/2022 Administered Influenza Unknown 01/31/2023 Administered COVID-19 Moderna Vaccine Unknown 02/24/2021 Administered 1st 07/21/2020 2nd 08/18/2020 Social History Tobacco Use: Social History Observation Description Date Details (start date - stop date) Former Smoker NA - NA Tobacco Use/Smoking Question Answer Notes Are you a: former smoker Additional Findings: Tobacco Non-User Current no n-smoker Alcohol Screen Question Answer Notes Did you have a drink contain ing alcohol in the past year? Yes How often did you have a dri nk containing alcohol in the past year? Monthly or less (1 point) How often did you have 6 or more drinks on one occasion in the past year? Less than monthly (1 point) Points 2 Interpretation Negative Tobacco use other than smoking: Question Answer Notes Are you an other tobacco user? No Problems Problem Type SNOMED Code ICD Code Onset Dates Problem Status W/U Status Risk Notes Problem Localized, primary osteoarthritis of the ankle and/or foot (742241849) Primary osteoarthritis, right ankle and foot (M19.071) Active confirmed Problem Chronic ulcer of foot (035031748) Non-pressure chronic ulcer of other part of left foot with fat layer exposed (L97.522) Active confirmed Problem Acquired hammer toe of right foot (474702691642853 5) Other hammer toe(s) (acquired), right foot (M20.41) Active confirmed Problem Acquired hammer toe of left foot (035763964591960 3) Other hammer toe(s) (acquired), left foot (M20.42) Active confirmed Problem Polyneuropathy due to type 2 diabetes mellitus (871981852) Type 2 diabetes mellitus with diabetic polyneuropathy (E11.42) Active confirmed Problem Plantar fasciitis of right foot (456136963628754 01) Plantar fasciitis of right foot (M72.2) Active confirmed Problem PlantarFlexion of metatarsal of left foot (M21.6X2) Active confirmed Problem Interstitial myositis (91524873) 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 confirmed Problem Ulcer of left foot (disorder) (251888305) Ulcer of left foot with fat layer exposed (L97.522) Active confirmed Problem Neuropathic ulcer of left foot (disorder) (190674161255353 00) Neuropathic ulcer of left foot, limited to breakdown of skin (L97.521) Active confirmed Improvement Vital Signs Blood pressure diastolic 80 mm Hg 05/07/2024 Height 6ft4in in 05/07/2024 Blood pressure systolic 120 mm Hg 05/07/2024 Weight 252 lbs 05/07/2024 BMI 30.67 kg/m2 05/07/2024 Procedures Procedure Date Ordered Date Performed Result Body Sit e 99921-DWPDDDH NAIL, 6 OR MORE 05/07/2024 N/A 60786-AFKM SKIN LESIONS, OVER 4 05/07/2024 N/A Encounters Encounter Location Date Provider Diagnosis [facility] [place] [address] [place] [address] 05/07/2024 Flori Black Neuropathic ulcer of left foot, limited to breakdown of skin L97.521 ; Plantar fasciitis of right foot M72.2 ; Type 2 diabetes mellitus with diabetic polyneuropathy E11.42 ; Tinea unguium B35.1 ; Pain in right foot M79.671 and Interstitial myositis of right foot M60.171 Assessments Encounter Date Diagnosis (ICD Code) Assessment Notes Treatment Notes Treatment Clinical Notes Section Notes 05/07/2024 Plantar fasciitis of right foot (ICD-10 - M72.2) 05/07/2024 Neuropathic ulcer of left foot, limited to breakdown of skin (ICD-10 - L97.521) 05/07/2024 Type 2 diabetes mellitus with diabetic polyneuropathy (ICD-10 - E11.42) 05/07/2024 Tinea unguium (ICD-10 - B35.1) 05/07/2024 Pain in right foot (ICD-10 - M79.671) 05/07/2024 Interstitial myositis of right foot (ICD-10 - M60.171) Plan Of Treatment Pending Test Test Name Order Date *Wound Culture 02/19/2021 *Wound Culture 08/30/2022 48096-VIUUMSU NAIL, 6 OR MORE 05/05/2023 14534-XWWETVI NAIL, 6 OR MORE 07/28/2023 66734-NOTPJMX NAIL, 6 OR MORE 05/07/2024 64918-Jbys Destruction, 1-14 05/26/2015 13006-Wourkooi Plate 05/26/2015 27508-Bpxatxso Plate 11/28/2014 04192-Iwnejyqb Plate 11/17/2015 15320-Azyqovqz Plate 05/10/2016 79843-Lemnrmlw Plate 11/21/2017 35839- Debride <25 sq cm 03/16/2021 18166- Debride <25 sq cm 04/18/2014 44605- Debride <25 sq cm 07/28/2023 60795- Debride <25 sq cm 11/08/2022 19589- Debride <25 sq cm 02/03/2023 65398- Debride <25 sq cm 03/07/2023 74450-BEMETCO SKIN/TISSUE 09/13/2022 29520-WJEQPBX SKIN/TISSUE 09/30/2022 35603-NVDYINZ SKIN/TISSUE 03/02/2021 75223 I&D ABSCESS- SIMPLE,SINGLE 014 37269 I&D ABSCESS- SIMPLE,SINGLE 015 17472-UPVP SKIN LESIONS, OVER 4 05/07/19 25 46233-ZSFP SKIN LESIONS, 2 TO 4 07/28/19 24 32004-MPSL SKIN LESIONS, 2 TO 4 05/05/19 24 03401-YCVK SKIN LESIONS, 2 TO 4 11/09/19 17 07690-CFTP SKIN LESIONS, 2 TO 4 05/30/19 18 96911-GDRN SKIN LESIONS, 2 TO 4 04/19/20 22 97247-OPRT SKIN LESIONS, 2 TO 4 02/04/20 20 69571-NTTB SKIN LESIONS, 2 TO 4 02/17/20 21 38017-HWQL SKIN LESIONS, 2 TO 4 05/15/19 19 41982-OTZD SKIN LESIONS, 2 TO 4 11/22/19 18 24131-SGKF SKIN LESIONS, 2 TO 4 11/14/19 19 53956-TXZR SKIN LESIONS, 2 TO 4 05/14/19 20 72629-BUZQ SKIN LESION 05/10/2016 93108-KGIZ SKIN LESION 11/17/2015 69422-YJAZ NAIL(S) 11/17/2015 00106-UIHL NAIL(S) 05/10/2016 72444-DLHB NAIL(S) 11/28/2014 53615-ANQU NAIL(S) 05/26/2015 N8756-TJPBWRKL DYSTROPHIC NAILS ANY # D9831-LDDFRGXC DYSTROPHIC NAILS ANY # T9383-YZQRJNZX DYSTROPHIC NAILS ANY # Q8292-UAXTIIZV DYSTROPHIC NAILS ANY # Z1079-KOOFJAIP DYSTROPHIC NAILS ANY # R1477-AMZMAWTA DYSTROPHIC NAILS ANY # T6917-PFQEERML DYSTROPHIC NAILS ANY # W0335-ZZWEQLSR DYSTROPHIC NAILS ANY # G1433-QBLRQXMH DYSTROPHIC NAILS ANY # Next Appt Details Provider Name:Flori Bah , 05/09/2025 02:30:00 PM, [address] [place] [address], [id number], Insurance Providers Payer Name Payer Address Payer Phone Subscriber Number Group Number Insured Name Patient Relationship to Insured Coverage Start Date Coverage End Date [facility] All Others [address] [place], [place] [id number] Haroldo Aquino Self - patient is the insured Medical (General) History Medical History History ICD Code Arthritis type II diabetes High blood pressure Measles Mumps Chicken pox high cholesterol Surgical History Surgery Date(Month/Year) arthroscopic knee surgery Torn bicept tendon colonoscopy endoscopy Bunion Operation 06/03/23
[2025-01-29 07:39] LABS: Alanine Aminotransferase 38 U/L (0-40); Albumin Level 4.5 g/dL (3.5-5.0); Alkaline Phosphatase 99 U/L (39-117); Anion Gap 12 (12-20); Aspartate Amino Transferase 26 U/L (5-37); Blood Urea Nitrogen 16 mg/dL (9-16); Calcium 9.4 mg/dL (8.4-10.2); Carbon Dioxide 23 mmol/L (22-29); Chloride 113 mmol/L (96-108); Creatinine Clr Calc Pharmacy 174.5; Estimated Glomerular Filt Rate > 60; INTERNATIONAL NORM RATIO 1.3 (0.9-1.1); Potassium 4.4 mmol/L (3.3-5.1); Prothrombin Time 14.8 SEC (10.9-12.4); Sodium 144 mmol/L (135-145); Total Protein 6.9 g/dL (6.5-8.0)
--- NOTE | 2025-01-29 07:40 | ED.MALEGU ---
HPI - Male Genitourinary General Chief complaint: Urogenital-Male Stated complaint: blood in urine Time Seen by Provider: 01/29/25 07:25 Source: patient Mode of arrival: ambulatory Limitations: no limitations History of Present Illness ED Provider: DR. Alvarado HPI Narrative: 69-year-old male pertinent history of DVT on Eliquis presented today with 3 days' history of blood in the urine, patient do not complain of abdominal pain or flank pain. No dizziness, no chest pain, no SOB , no fever, no chills. Related Data Home Medications ?Medication ?Instructions ?Recorded ?Confirmed chlorthalidone 25 mg tablet 25 mg PO DAILY PRN swelling 03/25/21 finasteride 5 mg tablet 5 mg PO DAILY 03/25/21 lisinopril 10 mg tablet 10 mg PO DAILY 03/25/21 metformin 1,000 mg tablet 1,000 mg PO BID 03/25/21 pravastatin 80 mg tablet 80 mg PO DAILY 03/25/21 Previous Rx's ?Medication ?Instructions ?Recorded azithromycin 250 mg tablet See Rx Instructions PO .COMPLEX #6 03/25/21 tabs prednisone 20 mg tablet 20 mg PO DAILY 3 days #3 tabs 03/25/21 nirmatrelvir 300 mg (150 mg See Rx Instructions PO .COMPLEX 5 03/26/22 x2)-ritonavir 100 mg tablet,dose days #30 ea pack (Paxlovid) Allergies Allergy/AdvReac Type Severity Reaction Status Date / Time paroxetine (From Paxil) Allergy Anaphylaxis Verified 01/29/25 07:07 Review of Systems Review of Systems: all other systems are reviewed and are negative Constitutional: Reports as per HPI and Reports no additional constitutional complaints Eyes: Reports as per HPI and Reports no additional eye complaints Reports system reviewed and no additional complaints, except as documented Cardiovascular: Reports as per HPI and Reports no additional cardiovascular complaints Respiratory: Reports as per HPI and Reports no additional respiratory complaints Gastrointestinal: Reports as per HPI and Reports no additional gastrointestinal complaints Genitourinary: Reports no additional female genitourinary complaints Musculoskeletal: Reports no additional musculoskeletal complaints Skin/Breast: Reports system reviewed and no additional complaints, except as docu Psychiatric: Reports no additional psychiatric complaints Endocrine: Reports no additional endocrine complaints Hematologic/Lymphatic: Reports no additional hematologic/lymphatic complaints Allergic/Immunologic: Reports no additional allergic/immunologic complaints Reports system reviewed and no additional complaints, except as documented and Reports Abnormal speech present [facility] Social History Social History Patient Tobacco Use Status: Former Tobacco user Smoked in Last 30 Days: No Use of substances other than those prescribed or required for medical reasons: No Advance Directives: No Advance Directives Information Provided: Yes Physical Exam Vital Signs: Vital Signs: Last Vital Signs Temp 97.7 F 01/29/25 07:27 Pulse 67 01/29/25 12:28 Resp 16 01/29/25 12:28 BP 178/79 H 01/29/25 12:28 Pulse Ox 94 01/29/25 12:28 O2 Del Method Room Air 01/29/25 12:28 BMI result Body Mass Index 73.1 Vital signs have been reviewed and appear to be correct. Blood pressure elevated. Heart rate normal. Respiratory rate normal. Temperature normal. Oxygen saturation normal. Appearance: Alert. Oriented X3. No acute distress. Head: Normal external exam. Normocephalic. Atraumatic. No Franco signs noted. No raccoon eyes noted Eyes: PERRLA. EOMI. Conjunctiva and sclera normal. Eyelids normal. ENT: TM's Normal. Pharynx normal. Uvula midline. Moist mucous membranes. No trismus noted. No drooling noted. No muffled voice noted. Neck: Normal inspection. Neck supple. FROM. No adenopathy. Thyroid Normal. No meningeal signs. No neck mass noted. CVS: Normal heart rate and rhythm. Heart sound normal. No murmurs noted. Pulses normal throughout. Respiratory: No respiratory distress. Painless inspiration. Breath sounds normal. No wheezes/rales/rhonchi noted. Chest nontender. No accessory muscle usage noted or decreased air movement noted. Abdomen: Soft and nontender. Bowel sounds normal in all 4 quadrants. No distention noted. No organomegaly noted. No visible injury noted. Back: No CVA tenderness. Full range of motion noted. Skin: Skin warm and dry. Normal skin color. Normal skin turgor. No rashes/lesions/lacerations noted. Extremities: No lower extremity edema. Extremities exhibit normal range of motion. Extremities nontender. Neuro: Oriented X 3. Cranial nerve exam: II-XII are grossly intact No motor deficit. No sensory deficit. Reflexes normal. Course Reevaluation(s) Reevaluation #1: Gross hematuria on Eliquis with no trauma. CT abdomen pelvis showing no obstructive uropathy. Three ways catheter with continuous bladder irrigation with normal saline urine is clearing. Case discussed with Dr. Nam who recommended to consult Hematology or vascular for discontinue anticoagulation. After I spoke with the patient patient has a strong family history of blood clots and he has been on anticoagulation for more than a year. Will admit the patient to the medical service. Time: 15:14 Medications Administered Discontinued Medications Generic Name Dose Route Start Last Admin Trade Name Frekendra PRN Reason Stop Dose Admin Lidocaine HCl 10 ml 01/29/25 08:57 01/29/25 09:56 Lidocaine Hcl 2 % Urojet 10 Ml Jel.Pf.Percy TOPICAL 01/29/25 08:58 10 ml ONCE ONE Administration Medical Decision Making Differential Diagnosis Differential Diagnoses: The differential diagnosis associated with the presentation includes ( Coagulopathy, obstructive uropathy, severe anemia hemodynamically unstable , continuous bladder irrigation.) Admission/Observation Consideration of admission/observation: Escalation of care including admission/observation considered Consult Healthcare Provider Management of the patient was discussed with: Hospitalist ( Julia Urbano) and [employer] ( Dr. Nam) Lab Data MDM Lab Attestation statement: I reviewed the patient's lab results. 01/29/25 07:14 01/29/25 07:14 Labs: Lab Results 01/29/25 Range/Units 07:14 WBC 7.2 (4.8-10.8) X10*3/uL RBC 4.67 (4.60-5.80) X10*6/uL Hgb 14.3 (14.0-18.0) g/dl Hct 41.7 L (42.0-52.0) % MCV 89.3 (80.0-98.0) fL MCH 30.6 (27.0-33.0) pg MCHC 34.3 (31.0-36.0) g/dl RDW 12.9 (11.0-16.0) % Plt Count 203 (160-400) X10*3/uL MPV 9.3 L (9.4-12.4) fL Immature Gran % (Auto) 0.6 H (0.0-0.4) % Neut % (Auto) 54.6 (45-73) % Lymph % (Auto) 33.0 (20-40) % Schleicher % (Auto) 8.0 (2-11) % Eos % (Auto) 2.8 (0-4) % Baso % (Auto) 1.0 (0-2) % Lymph # (Auto) 2.4 (1.2-4.9) X10*3/uL Schleicher # (Auto) 0.6 (0.1-1.2) X10*3/uL Eos # (Auto) 0.2 (0.0-0.4) X10*3/uL Baso # (Auto) 0.1 (0.0-0.2) X10*3/uL Abs Immat Gran (auto) 0.04 H (0.00-0.03) X10*3/uL Absolute Neuts (auto) 4.0 (2.0-8.3) x10*3/uL Absolute Nucleated RBC 0.000 (0.0-0.012) X10*3/uL Nucleated RBC % (auto) 0.0 (0.0-0.2) /100WBC PT 14.8 H (10.9-12.4) SEC INR 1.3 H (0.9-1.1) Sodium 144 (135-145) mmol/L Potassium 4.4 (3.3-5.1) mmol/L Chloride 113 H (96-108) mmol/L Carbon Dioxide 23 (22-29) mmol/L Anion Gap 12 (12-20) BUN 16 (9-16) mg/dL Creatinine 0.91 (0.5-1.4) mg/dL Estim Creat Clear Calc 174.5 Estimated GFR > 60 Random Glucose 168 H (60-115) mg/dL Calcium 9.4 (8.4-10.2) mg/dL Total Bilirubin 0.4 (0.0-1.0) mg/dL AST 26 (5-37) U/L ALT 38 (0-40) U/L Alkaline Phosphatase 99 (39-117) U/L Total Protein 6.9 (6.5-8.0) g/dL Albumin 4.5 (3.5-5.0) g/dL Urine Color Dark Yellow Urine Appearance Cloudy Urine pH 5.0 (5.0-9.0) Ur Specific [place] 1.020 (1.005-1.025) Urine Protein 100 (2+) H (Neg-Trace) mg/dL Urine Glucose (UA) Negative (Negative) mg/dL Urine Ketones Trace (Negative) mg/dL Urine Blood Large (3+) H (Negative) Urine Nitrite Negative (Negative) Ur Leukocyte Esterase Small (1+) H (Negative) Urine RBC >20 H (0-2) /HPF Urine WBC 11-20 H (0-5) /HPF Ur Squamous Epith Cells 11-20 (0-2) /HPF Urine Bacteria None Seen (None Seen) Hyaline Casts 0-2 (0-2) /LPF Independent Interpretation I performed an independent interpretation of an: CT Scan ( Abdomen pelvis:Nonobstructing 1 mm nephrolithiasis, right kidney. Cystic lesions, left kidney. Cystic lesions, hepatic. Hepatomegaly, mild. Atherosclerosis disease. Small fat-containing umbilical hernia. Multilevel spondylosis resulting in central spinal canal stenosis from L2-3 to L4-5. Osteopen) Radiology Impression Discussion of test interpretation with radiology: I have reviewed the radiologist's reading. Critical Care Time Critical Care Time Critical Care Time: Yes Total Critical Care Time: 60 Attestation: The patient was critically ill with a high probability of imminent or life-threatening deterioration. I spent greater than 30 minutes of discontinuous time evaluating the patient, delivering critical care at the bedside, discussing evaluating data with consultants. Critical care time does not include time spent performing separately billable procedures or teaching. Time spent performing critical care was 60 minutes. Discharge Plan Discharge Clinical Impression: Gross hematuria Patient Disposition: Admitted As Inpatient Additional Instructions: hold your afternoon dose of Eliquis and resume tomorrow as normal. Print Language: Ukrainian
--- NOTE | 2025-01-29 09:04 | PC.NURSE ---
Attempted to place [address] gage. Gage was placed with success when irrigating a pin hole was noticed in gage spraying irrigation fluid Patient requested numbing for next placement Provider notified Urojet administed, effectiveness pending
[2025-01-29] MEDS: Lidocaine HCl 2 % Urojet 10 ML JEL.PF.APP TOPICAL (09:56)
[2025-01-29 12:28] VITALS: BP 178/79; PULSE 67; RESP 16; O2SAT 94
--- NOTE | 2025-01-29 13:25 | PC.NURSE ---
1st Irrigation bag completed notified Emolgy Urine still tom colored, denies pain New order to hang another 3L irrigation bag Bag up and running at this time
--- NOTE | 2025-01-29 17:10 | PM.IMHP ---
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 PRESENTATION Patient reports that Tuesday, noted discoloration in his urine, more maia/dark in color. Yesterday the patient noted further episodes of bloody urine that did not self resolve. The patient reports observing clots in his urine yesterday, warranting his presentation to the hospital further evaluation. The patient denies fevers, chills, rigors. He denies dysuria, pyuria otherwise He denies flank pain or abdominal pain, nausea vomiting or diarrhea. The patient denies any ecchymosis, bleeding diathesis. He reports compliance with his apixaban, which she takes twice a day for the past 1.5 years, evaluated by Hematology/Oncology for a provoked DVT/PE - currently asymptomatic. ED MANAGEMENT Hemoglobin 14.3, RBC 4.6, white cell 7.2. No neutrophilic shift. INR 1.3 Creatinine 0.91, without electrolyte abnormalities LFTs unremarkable Urinalysis revealing urinary protein 2+, urinary blood 3+, RBC greater than 20, WBC 11-20. CT abdomen pelvis performed revealing nonobstructive 1 mm nephrolithiasis in the right kidney Cystic lesions identified in the left kidney, and cystic lesions identified in liver. Patient has mild hepatomegaly. Urology was consulted, with initiation of CBI. Plans for intervention tomorrow. Review of Systems Review of Systems: Yes all other systems are reviewed and are negative [facility] Functional capacity: independent ambulation Pertinent family history: Son: VTE Mother: VTE Social History Patient Tobacco Use Status: Former Tobacco user Smoked in Last 30 Days: No Use of substances other than those prescribed or required for medical reasons: No Advance Directives: No Advance Directives Information Provided: Yes Meds Allergies Allergy/AdvReac Type Severity Reaction Status Date / Time paroxetine (From Paxil) Allergy Anaphylaxis Verified 01/29/25 07:07 Active Medications: Current Medications Acetaminophen (Acetaminophen 325 Mg Tablet) 650 mg PO Q6H PRN PRN Reason: Pain, Mild 1-3,fever,headache Albuterol/Ipratropium (Albuterol/Iprat 2.5/0.5mg 3 Ml Ampul.Neb) 3 ml INHALE Q4H PRN PRN Reason: Shortness of Breath/Wheezing Benzonatate (Benzonatate 100 Mg Capsule) 100 mg PO TID PRN PRN Reason: Cough Calcium Carbonate (Calcium Carbonate 750 Mg Tab.Chew) 750 mg PO Q4H PRN PRN Reason: Heartburn Magnesium Hydroxide (Milk Of Magnesia 30 Ml Oral.Susp) 30 ml PO DAILY PRN PRN Reason: Constipation Melatonin (Melatonin 3 Mg Tablet) 6 mg PO BEDTIME PRN PRN Reason: Insomnia Ondansetron HCl (Ondansetron Hcl 4 Mg/2 Ml Vial) 4 mg IVPUSH Q8H PRN PRN Reason: Nausea and Vomiting Sodium Chloride (0.9 % Sodium Chloride Flush 3 Ml Syringe) [facility] ?Medication ?Instructions ?Recorded ?Confirmed ?Last Taken ?Type finasteride 5 mg tablet 5 mg PO DAILY 03/25/21 Unknown History metformin 1,000 mg tablet 1,000 mg PO BID 03/25/21 Unknown History pravastatin 80 mg tablet 80 mg PO DAILY 03/25/21 Unknown History albuterol sulfate 90 mcg/actuation inhalation 01/29/25 Unknown History aerosol inhaler apixaban 5 mg tablet (Eliquis) 5 mg PO BID 01/29/25 Unknown History benzonatate 200 mg capsule 200 mg PO BID 01/29/25 Unknown History codeine 10 mg-guaifenesin 100 mg/5 10 ml PO BEDTIME PRN cough 01/29/25 Unknown History mL oral liquid doxycycline hyclate 100 mg capsule 100 mg PO BID 01/29/25 Unknown History glipizide 5 mg tablet, extended 5 mg PO DAILY 01/29/25 Unknown History release 24 hr lisinopril 20 mg tablet 20 mg PO DAILY 01/29/25 Unknown History tamsulosin 0.4 mg capsule 0.4 mg PO DAILY 01/29/25 Unknown History trazodone 50 mg tablet 50 - 100 mg PO BEDTIME 01/29/25 Unknown History Physical Exam Vital Signs and Narrative: Vital Signs: Last Vital Signs Temp 97.7 F 01/29/25 07:27 Pulse 67 01/29/25 12:28 Resp 16 01/29/25 12:28 BP 178/79 H 01/29/25 12:28 Pulse Ox 94 01/29/25 12:28 O2 Del Method Room Air 01/29/25 12:28 BMI result Body Mass Index 73.1 Const: Other: General: A&O x3, oriented to time place person and situation, comfortable, no pain Cardiac: S1, S2 auscultated with no S3/4, no MRG. Well perfused. Respiratory: Normal breath sounds auscultated throughout all lung zones, without wheezing, rales. Normal rate. GI/ : No abdominal pain on palpation, no masses or distentions. Continuous bladder irrigation in place, with bloody urine and urine collection bag. MSK: Normal ambulation without pain at bony prominences or musculature Neurological: Normal neurological examination on overview, without obvious CN II-XII abnormalities. Results Labs 01/29/25 07:14 01/29/25 07:14 Labs: Laboratory Results - last 24 hr 01/29/25 07:14 MCV 89.3 MCH 30.6 MCHC 34.3 RDW 12.9 Plt Count 203 MPV 9.3 L Immature Gran % (Auto) 0.6 H Neut % (Auto) 54.6 Lymph % (Auto) 33.0 [place] % (Auto) 8.0 Eos % (Auto) 2.8 Baso % (Auto) 1.0 Lymph # (Auto) 2.4 [place] # (Auto) 0.6 Eos # (Auto) 0.2 Baso # (Auto) 0.1 Abs Immat Gran (auto) 0.04 H Absolute Neuts (auto) 4.0 Absolute Nucleated RBC 0.000 Nucleated RBC % (auto) 0.0 PT 14.8 H INR 1.3 H Anion Gap 12 Estim Creat Clear Calc 174.5 Estimated GFR > 60 Random Glucose 168 H Calcium 9.4 Total Bilirubin 0.4 AST 26 ALT 38 Alkaline Phosphatase 99 Total Protein 6.9 Albumin 4.5 Urine Color Dark Yellow Urine Appearance Cloudy Urine pH 5.0 Ur Specific [place] 1.020 Urine Protein 100 (2+) H Urine Glucose (UA) Negative Urine Ketones Trace Urine Blood Large (3+) H Urine Nitrite Negative Ur Leukocyte Esterase Small (1+) H Urine RBC >20 H Urine WBC 11-20 H Ur Squamous Epith Cells 11-20 Urine Bacteria None Seen Hyaline Casts 0-2 Imaging Radiologist's Impressions: Impressions Abdomen/Pelvis CT 01/29/25 08:20 IMPRESSION: Nonobstructing 1 mm nephrolithiasis, right kidney. Cystic lesions, left kidney. Cystic lesions, hepatic. Hepatomegaly, mild. Atherosclerosis disease. Small fat-containing umbilical hernia. Multilevel spondylosis resulting in central spinal canal stenosis from L2-3 to L4-5. Osteopenia versus osteoporosis. Fleischner guidelines were followed. Electronically signed by: Wilfredo Cao MD 01/29/2025 08:46 AM EDT RP Assessment and Plan (1) Gross hematuria: Status: Acute (2) Right nephrolithiasis: Status: Acute (3) Cyst of left kidney: Status: Acute (4) BPH (benign prostatic hyperplasia): Qualifiers: Lower urinary tract symptom presence: symptoms present Lower urinary tract symptom detail: urinary frequency Qualified Code(s): N40.1 - Benign prostatic hyperplasia with lower urinary tract symptoms; R35.0 - Frequency of micturition Status: Acute (5) Right leg DVT: Qualifiers: Affected thrombotic vein of extremity: unspecified vein of extremity Chronicity: chronic Qualified Code(s): I82.501 - Chronic embolism and thrombosis of unspecified deep veins of right lower extremity Status: Acute (6) Pulmonary embolism: Qualifiers: Pulmonary embolism type: unspecified Chronicity: chronic Acute cor pulmonale presence: without acute cor pulmonale Qualified Code(s): I27.82 - Chronic pulmonary embolism Status: Acute (7) Chronic anticoagulation: Status: Acute (8) T2DM (type 2 diabetes mellitus): Qualifiers: 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: without group home use Diabetes mellitus complication status: without complication Qualified Code(s): E11.9 - Type 2 diabetes mellitus without complications Status: Acute (9) HTN (hypertension): Qualifiers: Hypertension type: primary hypertension Qualified Code(s): I10 - Essential (primary) hypertension Status: Acute (10) HLD (hyperlipidemia): Qualifiers: Hyperlipidemia type: mixed hyperlipidemia Qualified Code(s): E78.2 - Mixed hyperlipidemia Status: Acute Plan Pleasant 69-year-old male, with a background history of HTN, HLD, T2 DM, BPH, 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 Hematuria BPH Nonobstructing right 1 mm nephrolith Left renal cystic lesions Presents with bright red hematuria over 1.5 days ago. Noted clots in urine No abdominal pain or pressure No systemic symptoms consistent with symptomatic anemia Physical examination unremarkable CT abdomen pelvis revealing 1 mm nephrolith in the right kidney, nonobstructing, as well as cystic lesions in the left kidney Urology consulted on presentation - requesting admission with initiation of continuous bladder irrigation Plan for possible cystoscopy tomorrow PLAN - continue CBI - monitor degree of hematuria - intake/output q.6 hourly - NPO midnight - hold apixaban - hold chemical VTE prophylaxis - continue tamsulosin 0.4 mg OD p.o. - continue finasteride DVT/PE 2022 On anticoagulation- apixaban History of provoked DVT/PE in 2022. Evaluated by Hematology/Oncology, recommending apixaban. Patient reports a family history of venous thromboemboli including in his son and his mother. The patient also reports episodes of easy bruising as well as dark-colored stool, possibly melanotic. PLAN - hold apixaban - no chemical VTE prophylaxis - SCDs - follow up for possible genetic component of thromboemboli CHRONIC MEDICAL ISSUES -T2 DM : Insulin sliding scale, POC glucose q.6 hourly while fasting -HTN : Continue lisinopril 20 mg OD p.o. -HLD : Continue pravastatin 80 mg OD p.o. QUALITY METRICS - VTE: No chemical prophylaxis, SCDs - CODE STATUS: Full code - DIET: Regular diet now-NPO midnight Quality Stroke Does the patient have a stroke diagnosis?: No VTE Prior VTE?: Yes VTE Risk Level:: Medical - moderate - high VTE Device Contraindication: N/A - Device Ordered VTE Drug Contraindication: Treatment Not Indicated
--- NOTE | 2025-01-29 18:10 | PHA.MEDREC ---
Addendum entered by Octavio Robertson [facility] 01/29/25 18:44: med rec reviewed Original Note: Pharmacy Consult ? Medication Reconciliation Pharmacy has completed the medication reconciliation. Patient was able to name all of his medications. Patient states he is no longer taking Codeine-Guaifenesin. Patient had all of his morning medications today.
--- NOTE | 2025-01-29 18:17 | PC.NURSE ---
Verbal report given to Lolita in Overflow
[2025-01-29 18:46] VITALS: BP 142/94; PULSE 70; RESP 16; O2SAT 93
[2025-01-29 19:40] LABS: Glucose, Whole Blood 101 mg/dL (60-115)
--- NOTE | 2025-01-29 20:36 | PC.ADMIT ---
Patient arrived to overflow from ED at 1900, alert/oriented, denies pain. Skin is intact, VSS. Lungs are cta. Abdomen soft, non tender with positive bowel sounds. CBI infusing with punch colored urine. Bed in low position, call parham in hand. All safety needs met. No acute issues.
[2025-01-29 21:10] VITALS: BP 150/86; PULSE 69; RESP 18; TEMP 36.4; O2SAT 97
[2025-01-30 06:00] VITALS: BP 146/83; PULSE 73; TEMP 36.4; O2SAT 95
[2025-01-30 06:18] LABS: Glucose, Whole Blood 148 mg/dL (60-115)
[2025-01-30 08:01] VITALS: BP 170/89; PULSE 74; RESP 18; TEMP 36.8; O2SAT 95
[2025-01-30 08:04] VITALS: BP 170/89
--- NOTE | 2025-01-30 09:30 | PC.NURSE ---
Assumed care of pt approx 0700. Pt resting in bed, A/O x 3 with no apparent s/s of distress. CBI running and moderate amount of pale yellow urine noted in catheter bag. Pt currently NPO pending ? of cysto today. Pt noted to have no IV access, #20 placed to R AC. Plan of care ongoing..
--- NOTE | 2025-01-30 10:47 | PC.NURSE ---
Addendum entered by Chasity Ball RN 01/30/25 11:00: Bladder volume undetectable on bladder scan Original Note: Pt reported full feeling to suprapubic/abdominal area. 3-way gage cath noted to be draining at slow rate, attempted hand irrigation with no clots noted. Pt continues to endorse discomfort, MD Desai notified. Gage cath noted to now have moderate amount of pale pink output.
[2025-01-30 11:13] LABS: MANUAL DIFF FLAG NO
[2025-01-30 11:14] LABS: Hematocrit 40.8 % (42.0-52.0); Hemoglobin 13.9 g/dl (14.0-18.0); Imm Gran Abs Auto 0.03 X10*3/uL (0.00-0.03); Imm Gran Pct Auto 0.4 % (0.0-0.4); Lymphocytes Absolute Auto 1.5 X10*3/uL (1.2-4.9); Mean Corpuscular HGB Conc 34.1 g/dl (31.0-36.0); Mean Corpuscular Hemoglobin 30.1 pg (27.0-33.0); Mean Corpuscular Volume 88.3 fL (80.0-98.0); NRBC Abs Auto 0.000 X10*3/uL (0.0-0.012); NRBC Pct Auto 0.0 /100WBC (0.0-0.2); Platelet Count 169 X10*3/uL (160-400); Red Blood Count 4.62 X10*6/uL (4.60-5.80); White Blood Count 6.7 X10*3/uL (4.8-10.8)
[2025-01-30] MEDS: oxyCODONE HCl Immed Release 5 MG TABLET PO (11:17)
[2025-01-30 11:29] LABS: Alanine Aminotransferase 31 U/L (0-40); Albumin Level 4.0 g/dL (3.5-5.0); Alkaline Phosphatase 84 U/L (39-117); Anion Gap 12 (12-20); Aspartate Amino Transferase 20 U/L (5-37); Blood Urea Nitrogen 14 mg/dL (9-16); Calcium 9.0 mg/dL (8.4-10.2); Carbon Dioxide 24 mmol/L (22-29); Chloride 110 mmol/L (96-108); Creatinine Clr Calc Pharmacy 196.0; Estimated Glomerular Filt Rate > 60; Potassium 4.0 mmol/L (3.3-5.1); Sodium 142 mmol/L (135-145); Total Protein 6.2 g/dL (6.5-8.0)
[2025-01-30 11:31] LABS: Glucose, Whole Blood 192 mg/dL (60-115)
--- NOTE | 2025-01-30 12:41 | PC.NURSE ---
Pt reports felling more comfortable, new CBI bag hung and gage emptied for 2L pale pink urine.
--- NOTE | 2025-01-30 13:54 | HO.NURTONUR ---
Haroldo is a 69 yo male, full code with an allergy to paroxetine. Arrived to ED with c/o bloody urine x 2 days. PMH: HTN, HDL, BPH, T2DM, and DVT ( on eliquis ) CT Abdomen: 1mm stone right kidney as well as cystic lesions. Urology consulted and pt has CBI running. 3-way gage placed by provider in ED. Pt NPO and eliquis on hold pending ? of possible cysto today. A/O x 3, reports adequate pain control with prn oxycodone 20G IV to R AC Pills whole with sips of H2O
[2025-01-30 14:00] VITALS: BP 154/83; PULSE 89; RESP 18; TEMP 36.8; O2SAT 93
--- NOTE | 2025-01-30 14:11 | MHC.CM.PN ---
family lives with pt pt is working and independnt has a ride home dc plan home n/s
--- NOTE | 2025-01-30 15:35 | PC.NURSE ---
Wren cath removed @ 1530 per MD, pt now regular diet. Pt given urinal and PO fluids encouraged. Awaiting pt void.
--- NOTE | 2025-01-30 15:37 | P.DS_ITS ---
DS: Providers Provider Date of Service: 01/30/25 Date of admission: 01/29/25 17:02 Date of discharge: 01/30/25 Primary care physician: Suresh Lincoln MD Consults: 01/30/25 12:19 Consult to Urology Routine Consulting Provider: [facility] Reason for consultation: hematuria, clots, suprapubic pain on apixaban for DVT/PE Has provider been notified: Yes DS: Diagnosis Discharge Diagnosis (1) Gross hematuria: Status: Acute (2) Right nephrolithiasis: Status: Acute (3) Cyst of left kidney: Status: Acute (4) BPH (benign prostatic hyperplasia): Status: Acute (5) Right leg DVT: Status: Acute (6) Pulmonary embolism: Status: Acute (7) Chronic anticoagulation: Status: Acute (8) T2DM (type 2 diabetes mellitus): Status: Acute (9) HTN (hypertension): Status: Acute (10) HLD (hyperlipidemia): Status: Acute DS: Summary Hospital Course Hospital Course: Pleasant 69-year-old male, with a background history of HTN, HLD, T2 DM, BPH, 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 PRESENTATION Patient reports that Jose Cruz, noted discoloration in his urine, more maia/dark in color. Yesterday the patient noted further episodes of bloody urine that did not self resolve. The patient reports observing clots in his urine yesterday, warranting his presentation to the hospital further evaluation. The patient denies fevers, chills, rigors. He denies dysuria, pyuria otherwise He denies flank pain or abdominal pain, nausea vomiting or diarrhea. The patient denies any ecchymosis, bleeding diathesis. He reports compliance with his apixaban, which she takes twice a day for the past 1.5 years, evaluated by Hematology/Oncology for a provoked DVT/PE - currently asymptomatic. ED MANAGEMENT Hemoglobin 14.3, RBC 4.6, white cell 7.2. No neutrophilic shift. INR 1.3 Creatinine 0.91, without electrolyte abnormalities LFTs unremarkable Urinalysis revealing urinary protein 2+, urinary blood 3+, RBC greater than 20, WBC 11-20. CT abdomen pelvis performed revealing nonobstructive 1 mm nephrolithiasis in the right kidney Cystic lesions identified in the left kidney, and cystic lesions identified in liver. Patient has mild hepatomegaly. Urology was consulted, with initiation of CBI. PROBLEM LIST Hematuria BPH Nonobstructing right 1 mm nephrolith Left renal cystic lesions Presents with bright red hematuria over 1.5 days ago. Noted clots in urine No abdominal pain or pressure No systemic symptoms consistent with symptomatic anemia Physical examination unremarkable CT abdomen pelvis revealing 1 mm nephrolith in the right kidney, nonobstructing, as well as cystic lesions in the left kidney Urology consulted on presentation - requesting admission with initiation of continuous bladder irrigation Patient is hematuria resolved, with CBI and on holding apixaban 5 mg b.i.d. p.o. Given the patient's history of DVT/PE, we will resume the patient's apixaban at 2.5 mg b.i.d. p.o., and recommend follow up with Hematology/Oncology for further management of anticoagulation. DVT/PE 2022 On anticoagulation- apixaban History of provoked DVT/PE in 2022. Evaluated by Hematology/Oncology, recommending apixaban. Patient reports a family history of venous thromboemboli including in his son and his mother. The patient also reports episodes of easy bruising as well as dark-colored stool, possibly melanotic. Given the patient's history of DVT/PE, we will resume the patient's apixaban at 2.5 mg b.i.d. p.o., and recommend follow up with Hematology/Oncology for further management of anticoagulation. Status at Discharge Cognitive/behavioral status at discharge: Alert and oriented to person place time and situation Functional status at discharge: independent ambulation Overall status at discharge: patient is back to baseline Time Attestation Total time managing care of this patient today: 50 mintues. Discharge Coordination Time (in mins): 15 Quality: Safe Use of Opioids Does Pt have an Active Cancer Diagnosis on the Problem List?: No Quality: Stroke Does the patient have a stroke diagnosis?: No Physical Exam Exam: Exam: General: A&O x3, oriented to time place person and situation, comfortable, no pain Cardiac: S1, S2 auscultated with no S3/4, no MRG. Well perfused. Respiratory: Normal breath sounds auscultated throughout all lung zones, without wheezing, rales. Normal rate. GI/ : No abdominal pain on palpation, no masses or distentions. MSK: Normal ambulation without pain at bony prominences or musculature Neurological: Normal neurological examination on overview, without obvious CN II-XII abnormalities. Vital Signs: Vital Signs: Last Vital Signs Temp 98.3 F 01/30/25 14:00 Pulse 89 01/30/25 14:00 Resp 18 01/30/25 14:00 BP 154/83 H 01/30/25 14:00 Pulse Ox 93 01/30/25 14:00 O2 Del Method Room Air 01/30/25 14:00 BMI result Body Mass Index 73.1 DS: Data Data Completed and Pending Labs on day of discharge: Laboratory Results - last 24 hr 01/29/25 01/30/25 01/30/25 19:35 06:13 11:08 WBC 6.7 RBC 4.62 Hgb 13.9 L Hct 40.8 L MCV 88.3 MCH 30.1 MCHC 34.1 RDW 12.5 Plt Count 169 MPV 9.3 L Immature Gran % (Auto) 0.4 Neut % (Auto) 69.1 Lymph % (Auto) 22.1 [place] % (Auto) 6.6 Eos % (Auto) 1.2 Baso % (Auto) 0.6 Lymph # (Auto) 1.5 [place] # (Auto) 0.4 Eos # (Auto) 0.1 Baso # (Auto) 0.0 Abs Immat Gran (auto) 0.03 Absolute Neuts (auto) 4.6 Absolute Nucleated RBC 0.000 Nucleated RBC % (auto) 0.0 Sodium 142 Potassium 4.0 Chloride 110 H Carbon Dioxide 24 Anion Gap 12 BUN 14 Creatinine 0.81 Estim Creat Clear Calc 196.0 Estimated GFR > 60 POC Glucose 101 148 H Random Glucose 170 H Calcium 9.0 Total Bilirubin 0.6 AST 20 ALT 31 Alkaline Phosphatase 84 Total Protein 6.2 L Albumin 4.0 01/30/25 11:28 WBC RBC Hgb Hct MCV MCH MCHC RDW Plt Count MPV Immature Gran % (Auto) Neut % (Auto) Lymph % (Auto) [place] % (Auto) Eos % (Auto) Baso % (Auto) Lymph # (Auto) [place] # (Auto) Eos # (Auto) Baso # (Auto) Abs Immat Gran (auto) Absolute Neuts (auto) Absolute Nucleated RBC Nucleated RBC % (auto) Sodium Potassium Chloride Carbon Dioxide Anion Gap BUN Creatinine Estim Creat Clear Calc Estimated GFR POC Glucose 192 H Random Glucose Calcium Total Bilirubin AST ALT Alkaline Phosphatase Total Protein Albumin Discharge Plan Discharge Anticipated Discharge Date/Time: 01/30/25 16:18 Patient Disposition: Home, Self-Care Discharge Diagnosis: Gross hematuria Referrals: Suresh Lincoln MD [Primary Care Provider, Medical] Discharge Medications: New apixaban 2.5 mg tablet 2.5 mg PO BID 30 Days Qty: 60 0RF Continued trazodone 50 mg tablet 50 - 100 mg PO BEDTIME benzonatate 200 mg capsule 200 mg PO BID lisinopril 20 mg tablet 20 mg PO DAILY glipizide 5 mg tablet extended release 24hr 5 mg PO DAILY tamsulosin 0.4 mg capsule 0.4 mg PO DAILY albuterol sulfate 90 mcg/actuation HFA aerosol inhaler 2 puff inhalation Q3-4H PRN (Reason: Shortness Of Breath Or Wheezing) finasteride 5 mg tablet 5 mg PO DAILY pravastatin 80 mg tablet 80 mg PO DAILY metformin 1,000 mg tablet 1,000 mg PO BID Discontinued doxycycline hyclate 100 mg capsule 100 mg PO BID Eliquis 5 mg tablet 5 mg PO BID Discharge Orders: Discharge Order (Routine); Ordered 01/30/25 Ordered By: Minerva Desai Diet: Advance to usual diet Activity on Discharge: As tolerated Stand Alone Forms: Patient Portal Discharge page Print Language: Korean Activity Restrictions/Additional Instructions: hold your afternoon dose of Eliquis and resume tomorrow as normal. Care Plan Goals: As above Health Concerns: As above. Concerns regarding the patient's DVT/PE, and need to follow up with Hematology Oncology, given his gross hematuria. The patient is currently on 5 mg b.i.d. p.o. apixaban, transitioned to 2.5 mg b.i.d. p.o. apixaban - we will require follow up with Hematology/Oncology for consolidation of anticoagulation Plan of Treatment: Follow up Hematology Oncology within 1 week of discharge Follow up with Urology outpatient within 1 week of discharge for possible cystoscopy/ureteroscopy Follow up PCP within 1 week of discharge Assessment: Hemodynamically stable, without vital sign changes, as well as stable hemoglobin. Deemed stable for discharge by Urology Patient Instructions: Hematuria (ED)
--- NOTE | 2025-01-30 16:31 | PC.NURSE ---
Pt voided approx 50mL dark pink urine, no clots noted. Post void bladder scan 19mL- MD Desai notified and plans to d/c pt home.
[2025-01-30 16:47] VITALS: BP 154/83; PULSE 89; RESP 18; TEMP 36.8; O2SAT 93
[2025-01-30 17:39] VITALS: BP 154/83; PULSE 89; RESP 18; TEMP 36.8; O2SAT 93
== END 2025-01-30 16:44 | disposition home or self-care (01) ==
LOC: HO.ED 15:46 → HO.EDOVER 17:09
PROVIDERS: Admitting Provider Hospitalist; Emergency Provider Emergency Medicine; PCP Internal Medicine; Visit Provider Hospitalist
DX: R31.0 Gross hematuria (principal); N20.0 Calculus of kidney; N28.1 Cyst of kidney, acquired; N40.1 Benign prostatic hyperplasia with lower urinary tract symptoms; I82.401 Acute embolism and thrombosis of unspecified deep veins of right lower extremity; I26.99 Other pulmonary embolism without acute cor pulmonale; E11.9 Type 2 diabetes mellitus without complications; I10 Essential (primary) hypertension; E78.2 Mixed hyperlipidemia; Z79.01 Long term (current) use of anticoagulants; Z79.899 Other long term (current) drug therapy
CPT/HCPCS: 36415; 74176; 80053; 81001; 82947; 85025; 85610; 87086; 99221; 99285

== ENCOUNTER → 2025-01-29 07:38 | Outpatient (BNV) | payer BC, SELFPAY | PROVIDERS: Emergency Provider Emergency Medicine; PCP Internal Medicine; Visit Provider Radiology Diagnostic Radiology | DX: K42.9 Umbilical hernia without obstruction or gangrene (principal); N20.0 Calculus of kidney | CPT/HCPCS: 74176 ==

== ENCOUNTER → 2025-01-29 17:02 | Outpatient (BNV) | payer BC, SELFPAY | PROVIDERS: Admitting Provider Hospitalist; Emergency Provider Emergency Medicine; PCP Internal Medicine; Visit Provider Hospitalist | DX: R31.0 Gross hematuria (principal); N20.0 Calculus of kidney; N28.1 Cyst of kidney, acquired; N40.1 Benign prostatic hyperplasia with lower urinary tract symptoms; R35.0 Frequency of micturition; I82.501 Chronic embolism and thrombosis of unspecified deep veins of right lower extremity; I27.82 Chronic pulmonary embolism; Z79.01 Long term (current) use of anticoagulants; E11.9 Type 2 diabetes mellitus without complications; I10 Essential (primary) hypertension; E78.2 Mixed hyperlipidemia | CPT/HCPCS: 99222; 99239 ==